=== PATIENT | female | born 1975 | race American Indian/Alaskan Native ===

== ENCOUNTER 2017-05-31 14:01 | Outpatient (CLI) | payer BC ==
--- NOTE | 2017-05-31 15:31 | Mammography Report ---
Bilateral mammogram and right axillary ultrasound: Patient presents with a history of a palpable right axillary mass for approximately 3 weeks which has improved with anti-inflammatory meds and localized heat. Routine mammography demonstrates a heterogeneous and generally unremarkable breast pattern. A marker was placed over the area of concern which was identified in the high axilla only seen in the MLO projection. There is no associated mass appreciated however this area could not be adequately compressed decubitus position. Ultrasound over the palpable finding demonstrates that it is relatively superficial and measures approximately 1 cm in size. It is ovoid and homogeneously hyperechoic. It is from the skin by subcutaneous fatty tissue. CAD used. Impression: Normal mammogram. Benign appearing nonspecific nodule in right axilla by ultrasound. Recommendation: Clinical followup. Patient counseled to continue her therapy and if it does not resolve notify physician for further evaluation. Annual mammogram followup. BI-RADS CATEGORY: 2 = Benign ACR BI-RADS MAMMOGRAPHIC CODES: 0 = Needs additional imaging evaluation; 1 = Negative; 2 = Benign; 3 = Probably benign; 4 = Suspicious; 5 = Malignant; 6 = Known biopsy-proven malignancy COMMENT: 1. Dense breast tissue, i.e., adenosis, fibrocystic changes, etc., may obscure an underlying neoplasm. 2. Approximately 10% of cancers are not detected with mammography. 3. A negative mammography report should not delay biopsy if a clinically suspicious mass is present.
== END 2017-05-31 14:02 | disposition home or self-care (01) ==
LOC: SPVWC 14:01
PROVIDERS: ATTEND Family Medicine
DX: N63.31 Unspecified lump in axillary tail of the right breast (principal)
CPT/HCPCS: 76642; G0204; 77066